=== PATIENT | female | born 1950 | race Caucasian/White ===

== ENCOUNTER 2023-02-11 10:01 | Emergency (ER) | payer MEDICARE, BC ==
[2023-02-11] MEDS ORDERED: Furosemide 20 MG/2 ML VIAL IVPUSH ONE (10:42)
[2023-02-11] MEDS: Sodium Chloride 0.9% 10 ML Syringe FLUSH PRN ×2 (11:02→13:39)
[2023-02-11 11:15] LABS: BASOPHILS ABSOLUTE AUTO 0.18 K/mm3 (0.01-0.08); BASOPHILS PERCENT AUTO 1.6 % (0.1-1.2); EOSINOPHILS ABSOLUTE AUTO 0.29 K/mm3 (0.04-0.36); EOSINOPHILS PERCENT AUTO 2.6 (0.7-5.8); HEMATOCRIT 29.8 % (34.1-44.9); HEMOGLOBIN 8.8 gm/dl (11.2-15.7); IMMATURE GRAN ABSOLUTE AUTO 0.03 K/mm3 (0.00-0.10); IMMATURE GRAN PERCENT AUTO 0.3 % (<=1.0); LYMPHOCYTES ABSOLUTE AUTO 1.16 K/mm3 (1.18-3.74); LYMPHOCYTES PERCENT AUTO 10.3 % (19.3-51.7); MEAN CORPUSCULAR HEMOGLOBIN 23.7 pg (25.6-32.2); MEAN CORPUSCULAR HGB CONC 29.5 g/dl (32.2-35.5); MEAN CORPUSCULAR VOLUME 80.3 fl (79.4-94.8); MEAN PLATELET VOLUME 10.9 fl (9.4-12.3); MONOCYTES ABSOLUTE AUTO 1.05 K/mm3 (0.24-0.36); MONOCYTES PERCENT AUTO 9.4 % (4.7-12.5); NEUTROPHILS ABSOLUTE AUTO 8.51 K/mm3 (1.56-6.13); NEUTROPHILS PERCENT AUTO 75.8 % (34.0-71.1); RED BLOOD CELL COUNT 3.71 M/mm3 (3.98-5.22); WHITE BLOOD CELL COUNT,WBC 11.22 K/mm3 (3.98-10.04)
[2023-02-11 11:26] LABS: PLATELET COUNT,PLT 1203 K/mm3 (182-369)
[2023-02-11 11:45] LABS: A/G RATIO 1.3 (1-2); ALBUMIN 3.5 g/dl (3.4-5.0); ANION GAP 13.2 (5-15); BILIRUBIN TOTAL 0.5 mg/dL (0.2-1.0); BUN/CREATININE RATIO 26.7 (14-18); CALCIUM 8.8 mg/dL (8.5-10.1); CREATININE 0.6 mg/dL (0.55-1.02); EST CRCL DRUG DOSING (CG) 78.17 mL/min; POTASSIUM,K 4.2 mEq/L (3.5-5.1); PROTEIN TOTAL,TP 6.3 g/dl (6.4-8.2)
[2023-02-11 12:05] LABS: SLIDE REVIEW ABNORMAL SMEAR
[2023-02-11] MEDS ORDERED: Iopamidol 612 MG/ML 100 ML Bottle IVPUSH ONE (13:38)
[2023-02-11] MEDS ORDERED: Pantoprazole 40 MG Vial IVPUSH ONE (14:02)
== END 2023-02-11 15:53 | disposition home or self-care (01) ==
LOC: JD.ED 10:01
DX: D75.839 Thrombocytosis, unspecified (principal); E27.8 Other specified disorders of adrenal gland; R19.5 Other fecal abnormalities; D62 Acute posthemorrhagic anemia; R60.0 Localized edema; K21.9 Gastro-esophageal reflux disease without esophagitis; Z91.048 Other nonmedicinal substance allergy status; Z79.899 Other long term (current) drug therapy
CPT/HCPCS: 36415; 71045; 74177; 80053; 83880; 84484; 85025; 93005; 93970; 96374; 96375; 99284; C9113; J1940; J3490; Q9967; 93010

== ENCOUNTER 2023-09-15 07:38 | Emergency (ER) | payer MEDICARE, BC ==
[2023-09-15 08:28] LABS: BASOPHILS ABSOLUTE AUTO 0.1 K/mm3 (0.0-0.2); BASOPHILS PERCENT AUTO 1.7 % (0.0-1.0); EOSINOPHILS ABSOLUTE AUTO 0.2 K/mm3 (0.0-0.4); EOSINOPHILS PERCENT AUTO 2.8 % (0.0-6.0); HEMATOCRIT 43.3 % (37.0-47.0); IMMATURE GRAN ABSOLUTE AUTO 0.01 K/mm3 (0.00-0.05); IMMATURE GRAN PERCENT AUTO 0.2 % (0.0-0.4); LYMPHOCYTES ABSOLUTE AUTO 0.9 K/mm3 (1.0-4.8); LYMPHOCYTES PERCENT AUTO 15.2 % (24.0-44.0); MEAN CORPUSCULAR HEMOGLOBIN 32.1 pg (28.0-32.0); MEAN CORPUSCULAR HGB CONC 33.3 g/dl (32.0-36.0); MEAN CORPUSCULAR VOLUME 96.7 fl (83.0-99.0); MEAN PLATELET VOLUME 10.7 fl (9.4-12.3); MONOCYTES ABSOLUTE AUTO 0.5 K/mm3 (0.0-0.8); NEUTROPHILS ABSOLUTE AUTO 4.3 K/mm3 (1.8-7.7); NEUTROPHILS PERCENT AUTO 72.1 % (41.0-71.0); RED BLOOD CELL COUNT 4.48 M/mm3 (4.10-5.30)
[2023-09-15 08:58] LABS: HEMOGLOBIN 14.4 gm/dl (12.0-16.0); PLATELET COUNT,PLT 506 K/mm3 (150-400)
[2023-09-15 09:00] LABS: A/G RATIO 1.4 (1-2); ALBUMIN 3.7 g/dl (3.4-5.0); ANION GAP 12.5 (5-15); BILIRUBIN TOTAL 1.6 mg/dL (0.2-1.0); CALCIUM 9.3 mg/dL (8.5-10.1); CREATININE 0.5 mg/dL (0.55-1.02); EST CRCL DRUG DOSING (CG) 84.67 mL/min; POTASSIUM,K 3.5 mEq/L (3.5-5.1); PROTEIN TOTAL,TP 6.3 g/dl (6.4-8.2)
[2023-09-15 09:03] LABS: APPEARANCE,URINE CLOUDY (Clear); BILIRUBIN,URINE 2+ (Negative); COLOR,URINE AMBER (Yellow); GLUCOSE,URINE NEGATIVE (Negative); KETONES,URINE TRACE (Negative); LEUKOCYTE ESTERASE,URINE NEGATIVE (Negative); NITRITE,URINE NEGATIVE (Negative); OCCULT BLOOD,URINE 3+ (Negative); PROTEIN,URINE 3+ (Negative)
[2023-09-15 09:03] LABS: INR 1.08; PROTHROMBIN TIME 11.5 SECONDS (9.7-12.0)
[2023-09-15 09:04] LABS: PTT,PARTIAL THROMBOPLSTIN TIME 33.4 SECONDS (21.7-31.4)
[2023-09-15 09:24] LABS: RBC,URINE TOO NUMEROUS TO CNT /hpf (0-5)
[2023-09-15 09:25] LABS: BACTERIA,URINE MODERATE /hpf (FEW); CALCIUM OXALATE CRYSTALS,URINE FEW; MUCUS,URINE FEW /hpf (FEW)
== END 2023-09-15 10:30 | disposition home or self-care (01) ==
LOC: JD.ED 07:38
DX: R31.0 Gross hematuria (principal); K21.9 Gastro-esophageal reflux disease without esophagitis; Z79.899 Other long term (current) drug therapy; Z91.048 Other nonmedicinal substance allergy status
CPT/HCPCS: 36415; 80053; 81001; 85025; 85610; 85730; 99283; C1758

== ENCOUNTER 2024-01-10 08:51 | Emergency (ER) | payer MEDICARE, BC ==
[2024-01-10 09:30] LABS: BASOPHILS PERCENT AUTO 0.9 % (0.0-1.0); EOSINOPHILS ABSOLUTE AUTO 0.1 K/mm3 (0.0-0.4); EOSINOPHILS PERCENT AUTO 3.1 % (0.0-6.0); HEMATOCRIT 29.9 % (37.0-47.0); IMMATURE GRAN ABSOLUTE AUTO 0.01 K/mm3 (0.00-0.05); IMMATURE GRAN PERCENT AUTO 0.4 % (0.0-0.4); LYMPHOCYTES ABSOLUTE AUTO 0.6 K/mm3 (1.0-4.8); LYMPHOCYTES PERCENT AUTO 28.7 % (24.0-44.0); MEAN CORPUSCULAR HEMOGLOBIN 40.3 pg (28.0-32.0); MEAN CORPUSCULAR HGB CONC 34.1 g/dl (32.0-36.0); MONOCYTES ABSOLUTE AUTO 0.2 K/mm3 (0.0-0.8); NEUTROPHILS ABSOLUTE AUTO 1.3 K/mm3 (1.8-7.7); NEUTROPHILS PERCENT AUTO 57.9 % (41.0-71.0); RED BLOOD CELL COUNT 2.53 M/mm3 (4.10-5.30)
[2024-01-10 09:35] LABS: HEMOGLOBIN 10.2 gm/dl (12.0-16.0); MEAN CORPUSCULAR VOLUME 118.2 fl (83.0-99.0); PLATELET COUNT,PLT 138 K/mm3 (150-400); WHITE BLOOD CELL COUNT,WBC 2.23 K/mm3 (3.9-11.3)
[2024-01-10 09:51] LABS: INR 0.97; PROTHROMBIN TIME 10.4 SECONDS (9.7-12.0)
[2024-01-10 09:52] LABS: PTT,PARTIAL THROMBOPLSTIN TIME 28.2 SECONDS (21.7-31.4)
[2024-01-10 09:54] LABS: A/G RATIO 1.1 (1-2); ALBUMIN 3.2 g/dl (3.4-5.0); ANION GAP 11.8 (5-15); BILIRUBIN TOTAL 0.8 mg/dL (0.2-1.0); BUN/CREATININE RATIO 18.3 (14-18); CALCIUM 8.8 mg/dL (8.5-10.1); CREATININE 0.6 mg/dL (0.55-1.02); EST CRCL DRUG DOSING (CG) 65.18 mL/min; MAGNESIUM 1.9 mg/dL (1.8-2.4); POTASSIUM,K 3.8 mEq/L (3.5-5.1); PROTEIN TOTAL,TP 6.2 g/dl (6.4-8.2)
[2024-01-10 10:06] LABS: SLIDE REVIEW ABNORMAL SMEAR
[2024-01-10 10:28] LABS: APPEARANCE,URINE CLOUDY (Clear); BILIRUBIN,URINE 1+ (Negative); COLOR,URINE RED (Yellow); GLUCOSE,URINE NEGATIVE (Negative); KETONES,URINE TRACE (Negative); LEUKOCYTE ESTERASE,URINE TRACE (Negative); NITRITE,URINE POSITIVE (Negative); OCCULT BLOOD,URINE 3+ (Negative); PH,URINE 7.5 (5.0-8.0); PROTEIN,URINE 3+ (Negative)
[2024-01-10 11:04] LABS: BACTERIA,URINE MODERATE /hpf (FEW); MUCUS,URINE FEW /hpf (FEW); RBC,URINE >100 /hpf (0-5)
[2024-01-10] MEDS: Sulfamethoxazole/Trimethoprim 800-160 MG Tab PO ONE (11:38)
== END 2024-01-10 11:45 | disposition home or self-care (01) ==
LOC: JD.ED 08:51
DX: N39.0 Urinary tract infection, site not specified (principal); D61.818 Other pancytopenia; K21.9 Gastro-esophageal reflux disease without esophagitis; Z79.899 Other long term (current) drug therapy; Z91.048 Other nonmedicinal substance allergy status; Z91.09 Other allergy status, other than to drugs and biological substances
CPT/HCPCS: 36415; 80053; 81001; 83735; 85025; 85610; 85730; 99283; A9270

== ENCOUNTER 2025-04-15 17:53 | Emergency (ER) | payer MEDICARE, OTHER ==
[2025-04-15 19:43] LABS: APPEARANCE,URINE CLEAR (Clear); GLUCOSE,URINE NEGATIVE (Negative); OCCULT BLOOD,URINE 1+ (Negative)
[2025-04-15 20:00] LABS: SQUAMOUS EPITHELIAL CELLS,UR 0-5 /hpf (0-5)
== END 2025-04-15 20:15 | disposition home or self-care (01) ==
LOC: JD.ED 17:53
DX: N39.0 Urinary tract infection, site not specified (principal); K21.9 Gastro-esophageal reflux disease without esophagitis; Z79.899 Other long term (current) drug therapy; Z91.048 Other nonmedicinal substance allergy status; Z91.09 Other allergy status, other than to drugs and biological substances
CPT/HCPCS: 81001; 87086; 99283; A9270

== ENCOUNTER 2025-05-01 21:00 | Inpatient (IN) | payer MEDICARE, OTHER ==
[2025-05-01] MEDS ORDERED: Sodium Chloride 0.9% 10 ML Syringe FLUSH PRN (21:39)
[2025-05-01 22:09] LABS: BASOPHILS ABSOLUTE AUTO 0.1 K/mm3 (0.0-0.2); BASOPHILS PERCENT AUTO 1.0 % (0.0-1.0); EOSINOPHILS ABSOLUTE AUTO 0.1 K/mm3 (0.0-0.4); EOSINOPHILS PERCENT AUTO 1.2 % (0.0-6.0); IMMATURE GRAN ABSOLUTE AUTO 0.02 K/mm3 (0.00-0.05); IMMATURE GRAN PERCENT AUTO 0.4 % (0.0-0.4); LYMPHOCYTES ABSOLUTE AUTO 0.7 K/mm3 (1.0-4.8); LYMPHOCYTES PERCENT AUTO 13.7 % (24.0-44.0); MEAN PLATELET VOLUME 10.7 fl (9.4-12.3); MONOCYTES ABSOLUTE AUTO 0.5 K/mm3 (0.0-0.8); MONOCYTES PERCENT AUTO 10.0 % (0.0-8.0); NEUTROPHILS ABSOLUTE AUTO 3.7 K/mm3 (1.8-7.7); NEUTROPHILS PERCENT AUTO 73.7 % (41.0-71.0); NRBC ABSOLUTE 0.00 (0.00-0.02); NRBC PERCENT 0.0 % (0.0-0.2); PLATELET COUNT,PLT 280 K/mm3 (150-400); RED BLOOD CELL COUNT 3.91 M/mm3 (4.10-5.30); WHITE BLOOD CELL COUNT,WBC 5.02 K/mm3 (3.9-11.3)
[2025-05-01 22:11] LABS: APPEARANCE,URINE CLEAR (Clear); GLUCOSE,URINE NEGATIVE (Negative); OCCULT BLOOD,URINE 1+ (Negative)
[2025-05-01 22:31] LABS: A/G RATIO 1.3 (1-2); ALANINE AMINOTRANSFERASE,ALT 9.0 U/L (14-59); ASPARTATE AMNIOTRANSFERASE,AST 15.0 U/L (15-37); BILIRUBIN TOTAL 0.5 mg/dL (0.2-1.0); BLOOD UREA NITROGEN,BUN 20.0 mg/dL (7-18); CARBON DIOXIDE,CO2 28.0 mEq/L (21-32); CHLORIDE,CL 107.0 mEq/L (98-107); CREATININE 0.5 mg/dL (0.55-1.02); EST CRCL DRUG DOSING (CG) 76.89 mL/min; ESTIMATED GFR 98.0 mL/min (>60); GLUCOSE RANDOM 104.0 mg/dL (70-99); POTASSIUM,K 4.1 mEq/L (3.5-5.1); PROTEIN TOTAL,TP 6.3 g/dl (6.4-8.2); SODIUM,NA 142.0 mEq/L (136-145)
[2025-05-01 22:35] LABS: LACTIC ACID 0.5 mmol/L (0.4-2.0)
[2025-05-01] MEDS ORDERED: Ondansetron 4 MG/2 ML SDV IV PRN (23:43)
[2025-05-01] MEDS ORDERED: Acetaminophen/oxyCODONE 325-5 MG Tab PO PRN (23:43)
[2025-05-02] MEDS: LORazepam 2 MG/ML SDV IV ONE (00:07)
[2025-05-02 06:04] LABS: BASOPHILS ABSOLUTE AUTO 0.0 K/mm3 (0.0-0.2); BASOPHILS PERCENT AUTO 0.5 % (0.0-1.0); EOSINOPHILS ABSOLUTE AUTO 0.1 K/mm3 (0.0-0.4); EOSINOPHILS PERCENT AUTO 1.6 % (0.0-6.0); IMMATURE GRAN ABSOLUTE AUTO 0.02 K/mm3 (0.00-0.05); IMMATURE GRAN PERCENT AUTO 0.5 % (0.0-0.4); LYMPHOCYTES ABSOLUTE AUTO 1.0 K/mm3 (1.0-4.8); LYMPHOCYTES PERCENT AUTO 22.7 % (24.0-44.0); MEAN PLATELET VOLUME 10.9 fl (9.4-12.3); MONOCYTES ABSOLUTE AUTO 0.5 K/mm3 (0.0-0.8); MONOCYTES PERCENT AUTO 10.5 % (0.0-8.0); NEUTROPHILS ABSOLUTE AUTO 2.8 K/mm3 (1.8-7.7); NEUTROPHILS PERCENT AUTO 64.2 % (41.0-71.0); NRBC ABSOLUTE 0.00 (0.00-0.02); NRBC PERCENT 0.0 % (0.0-0.2); PLATELET COUNT,PLT 224 K/mm3 (150-400); RED BLOOD CELL COUNT 3.50 M/mm3 (4.10-5.30); WHITE BLOOD CELL COUNT,WBC 4.28 K/mm3 (3.9-11.3)
[2025-05-02 06:21] LABS: A/G RATIO 1.1 (1-2); ALANINE AMINOTRANSFERASE,ALT 17.0 U/L (14-59); ASPARTATE AMNIOTRANSFERASE,AST 12.0 U/L (15-37); BILIRUBIN TOTAL 0.5 mg/dL (0.2-1.0); BLOOD UREA NITROGEN,BUN 15.0 mg/dL (7-18); CARBON DIOXIDE,CO2 28.0 mEq/L (21-32); CHLORIDE,CL 108.0 mEq/L (98-107); CREATININE 0.5 mg/dL (0.55-1.02); EST CRCL DRUG DOSING (CG) 76.89 mL/min; ESTIMATED GFR 98.0 mL/min (>60); GLUCOSE RANDOM 87.0 mg/dL (70-99); POTASSIUM,K 3.8 mEq/L (3.5-5.1); PROTEIN TOTAL,TP 5.5 g/dl (6.4-8.2); SODIUM,NA 143.0 mEq/L (136-145)
[2025-05-02] MEDS: LORazepam 2 MG/ML SDV IVPUSH PRN (13:36)
[2025-05-02] MEDS ORDERED: Sennosides/Docusate Sodium 50-8.6 MG Tab PO PRN (15:42)
[2025-05-02 16:29] LABS: TSH 1.591 uIU/mL (0.358-3.74); VITAMIN D,25-HYDROXY 23.0 ng/ml (30.0-100.0)
[2025-05-02 16:32] LABS: FOLIC ACID 12.0 ng/mL (8.6-58.9)
[2025-05-02 18:21] LABS: BUPRENORPHINE SCREEN,URINE NEGATIVE (CUTOFF=10); METHADONE SCREEN, URINE NEGATIVE (CUTOFF=200); METHAMPHETAMINES SCREEN, URINE NEGATIVE (CUTOFF=500); OXYCODONE SCREEN,URINE NEGATIVE (CUT0FF=100); THC SCREEN,URINE 20 NG/ML NEGATIVE (CUTOFF=50)
[2025-05-02 18:24] LABS: AMPHETAMINES SCREEN, URINE NEGATIVE (CUTOFF=500)
[2025-05-03] MEDS: Cholecalciferol (Vitamin D3) 5,000 UNIT Cap PO SCH (15:29)
== END 2025-05-04 16:10 | disposition home or self-care (01) | DRG 690 ==
LOC: JD.ED 21:00 → JD.MS 23:38
PROVIDERS: ADMIT Family Medicine; ATTEND Family Medicine
DX: R41.82 Altered mental status, unspecified (principal); N39.0 Urinary tract infection, site not specified; F02.84 Dementia in other diseases classified elsewhere, unspecified severity, with anxiety; F02.83 Dementia in other diseases classified elsewhere, unspecified severity, with mood disturbance; G93.49 Other encephalopathy; Z66 Do not resuscitate; H54.7 Unspecified visual loss; Z96.659 Presence of unspecified artificial knee joint; H91.90 Unspecified hearing loss, unspecified ear; G47.30 Sleep apnea, unspecified; K21.9 Gastro-esophageal reflux disease without esophagitis; D75.839 Thrombocytosis, unspecified; D75.89 Other specified diseases of blood and blood-forming organs; E55.9 Vitamin D deficiency, unspecified; G20.A1 Parkinson's disease without dyskinesia, without mention of fluctuations; Z85.3 Personal history of malignant neoplasm of breast; Z90.89 Acquired absence of other organs; Z98.49 Cataract extraction status, unspecified eye; Z98.890 Other specified postprocedural states; Z90.710 Acquired absence of both cervix and uterus; Z98.51 Tubal ligation status; Z90.10 Acquired absence of unspecified breast and nipple; Z88.3 Allergy status to other anti-infective agents; Z79.899 Other long term (current) drug therapy; Z88.8 Allergy status to other drugs, medicaments and biological substances
CPT/HCPCS: 36415; 70450; 70450-26; 80053; 80143; 80179; 80306; 81001; 82140; 82306; 82607; 82746; 83605; 83735; 84425; 84443; 85025; 87086; 93005; 97116-GP; 97161-GP; 97530-GP; 99285; A9270-GY; J0696; J1650; J2060; J7030